=== PATIENT | male | born 1955 | race Caucasian/White ===

== ENCOUNTER → 2020-11-07 | Outpatient (CLI) | payer OTHER | LOC: KOH-I 08:16 | DX: M25.551 Pain in right hip (principal); M54.5 Low back pain; M47.816 Spondylosis without myelopathy or radiculopathy, lumbar region; M16.0 Bilateral primary osteoarthritis of hip | CPT/HCPCS: 72100; 73522 ==

== ENCOUNTER → 2021-12-30 | Outpatient (CLI) | payer MEDICARE ==
[~2021-12-30] MED LIST: BACLOFEN10 MG PO; CRESTOR20 MG PO; HYDROXYZINE HCL25 MG PO; LISINOPRIL-HCT1 EAC1 PO; LOW DOSE ASPIRI81 MG PO; METHIMAZOLE5 MG PO; NEURONTIN300 MG PO; NORVASC5 MG PO; OSTEOBIFLEX PO; PROTONIX 40 MG40 M1 PO; TOPROL XL50 MG PO; VOLTAREN EC 7575 MG PO; XYZAL5 MG PO
[2021-12-30 11:58] LABS: BUN/CREATININE RATIO 17 (0-10)
== END ==
LOC: OPSV2 09:58
PROVIDERS: Anesthesiology
DX: Z01.818 Encounter for other preprocedural examination (principal)
CPT/HCPCS: 36415; 80048; 93005

== ENCOUNTER → 2021-12-31 | Day surgery (SDC) | payer MEDICARE | END | disposition home or self-care (01) | LOC: OR 06:59 | DX: M60.9 Myositis, unspecified (principal); M62.522 Muscle wasting and atrophy, not elsewhere classified, left upper arm; I10 Essential (primary) hypertension; I25.2 Old myocardial infarction; M19.90 Unspecified osteoarthritis, unspecified site; E07.9 Disorder of thyroid, unspecified; F17.210 Nicotine dependence, cigarettes, uncomplicated; Z95.5 Presence of coronary angioplasty implant and graft; Z79.82 Long term (current) use of aspirin; Z79.899 Other long term (current) drug therapy | CPT/HCPCS: J0690; J1100; J2001; J2250; J2405; J2704; J3010 ==